=== PATIENT | female | born 2000 | race Two or more races ===

== ENCOUNTER 2023-10-22 03:05 | Outpatient (CLI) | payer OTHER ==
[2023-10-22] MEDS ORDERED: PRENATAL TABLE1 EAC1 PO (03:09)
[2023-10-22] MEDS ORDERED: RINGERS SOLUTION,LACTATED 1,000 ML IV SCH (03:15)
[2023-10-22 03:42] LABS: HEMATOCRIT 30.9 % (36.0-45.00); HEMOGLOBIN 10.6 g/dL (12.0-15.00); MEAN CELL VOLUME 87.7 fL (80.00-100.00); MEAN CORPUSCULAR HEMOGLOBIN 30.1 pg (27.00-32.0); MEAN CORPUSCULAR HGB CONC 34.3 g/dl (32.0-36.0); PLATELET COUNT 263 K/uL (150-450); RED BLOOD COUNT 3.53 M/uL (4.00-6.00); RED CELL DISTRIBUTION WIDTH 13.1 % (11.5-14.5); URINE APPEARANCE Clear; URINE BILIRRUBIN Negative (NEGATIVE); URINE BLOOD Negative; URINE COLOR Dark Yellow; URINE GLUCOSE Negative (NEGATIVE); URINE LEUKOCYTE Negative; URINE NITRATE Negative; URINE PROTEIN Trace (NEGATIVE)
[2023-10-22 03:45] LABS: URINE BACTERIA 605.9 uL (0.0-1933); URINE EPITHELIAL CELLS 8.8 uL (0.0-38.8); URINE RBC 10.2 uL (0.0-20.8); URINE WBC 15.2 uL (0.0-23.2)
[2023-10-22 05:16] LABS: URINE CRYSTALS MANY /HPF
== END 2023-10-22 13:23 | disposition home or self-care (01) ==
LOC: OBS/DEL 03:05
PROVIDERS: Student in an Organized Health Care Education/Training Program; ATTEND Specialist
DX: O99.013 Anemia complicating pregnancy, third trimester (principal); Z3A.28 28 weeks gestation of pregnancy

== ENCOUNTER 2025-04-03 07:35 | Inpatient (IN) | payer OTHER ==
[~2025-04-03] VITALS: Ht 167.6 cm; Wt 76.2 kg
[2025-04-03 07:15] VITALS: BP 128/76
[~2025-04-03 07:35] MED LIST: IRON236 MG PO; PRENATAL TABLE1 EAC1 PO
[2025-04-03] MEDS ORDERED: MORPHINE SULFATE 4 MG/ML CARTRIDGE IV ONE (07:45)
[2025-04-03] MEDS ORDERED: RINGERS SOLUTION,LACTATED 1,000 ML IV SCH (07:45)
[2025-04-03 08:43] LABS: BASO % 0.2 % (0.1-1.2); EOS # 0.03 (0.04-0.54); EOS % 0.2 % (0.7-7.0); LYMPH # 1.77 (1.18-3.74); LYMPH % 13.8 % (19.3-53.1); MEAN PLATELET VOLUME 9.00 fl (9.4-12.4); MONO # 0.88 (0.24-0.82); MONO % 6.9 % (4.7-12.5); NEUT # 10.03 (1.56-6.13); NEUT % 78.6 % (34.0-71.1); RED CELL DISTRIBUTION WIDTH 12.8 % (11.6-14.4); URINE APPEARANCE Clear; URINE BILIRRUBIN Negative (NEGATIVE); URINE BLOOD Large; URINE COLOR Yellow; URINE GLUCOSE Negative (NEGATIVE); URINE KETONE Trace (NEGATIVE); URINE LEUKOCYTE Negative; URINE NITRATE Negative; URINE PROTEIN Negative (NEGATIVE); URINE UROBILINOGEN 1.0 E.U./dl
[2025-04-03 08:48] LABS: URINE BACTERIA 2660.3 uL (0.0-1933); URINE EPITHELIAL CELLS 14.6 uL (0.0-38.8); URINE RBC 2.1 uL (0.0-20.8); URINE WBC 11.8 uL (0.0-23.2)
[2025-04-03 09:19] LABS: ALT/SGPT 15.0 U/L (12-78); AST/SGOT 14.0 U/L (15-37); BILIRUBIN TOTAL 1.04 mg/dL (0.3-1.2); BUN CREA RATIO 23.0 (7.0-25.0); CREATININE SERUM 0.44 mg/dL (0.55-1.02); GFR 177.2; GLOBULINA 3.4 G/DL (2.4-3.5); GLUCOSE FASTING 78.0 mg/dL (65-100); OSMOLALITY SERUM 275.0 MOSM/KG (275-295)
[2025-04-03 09:24] VITALS: BP 113/79
[2025-04-03] MEDS ORDERED: CHLORHEXIDINE GLUCONATE 120 ML BOTTLE TOP ONE (09:30)
[2025-04-03] MEDS ORDERED: ERYTHROMYCIN BASE OPHT 1GM EACH TUBE OP ONE (09:30)
[2025-04-03 09:31] LABS: INR 0.94
[2025-04-03 09:46] VITALS: BP 109/61
[2025-04-03 09:49] LABS: URINE CAST 0.00 uL (0.0-1.40)
[2025-04-03 10:00] VITALS: BP 115/71
[2025-04-03] MEDS ORDERED: OXYTOCIN 20 UNITS/1000ML RL PIGGYBAG IV SCH (10:15)
[2025-04-03] MEDS ORDERED: LIDOCAINE HCL 1% 10ML VIAL IJ ONE (10:15)
[2025-04-03 10:16] VITALS: BP 100/63
[2025-04-03 11:40] VITALS: BP 116/67
[2025-04-04 01:26] VITALS: BP 101/68
[2025-04-04 04:00] VITALS: BP 104/60
[2025-04-04 09:23] VITALS: BP 100/64
[2025-04-04 16:32] VITALS: BP 106/55
[2025-04-05] VITALS: BP 99/72
[2025-04-05 08:48] VITALS: BP 108/68
[2025-04-05 16:47] VITALS: BP 108/69
== END 2025-04-05 18:19 | disposition home or self-care (01) | DRG 807 ==
LOC: OB/GYN 07:35 → LDR 07:35 → OB/GYN 10:17
PROVIDERS: ADMIT Specialist; ATTEND Specialist
PROC: 10E0XZZ Delivery of Products of Conception, External Approach (ICD-10-PCS; principal; 2025-04-03)
PROC: 0HQ9XZZ Repair Perineum Skin, External Approach (ICD-10-PCS; 2025-04-03)
PROC: 4A1HXCZ Monitoring of Products of Conception, Cardiac Rate, External Approach (ICD-10-PCS; 2025-04-03)
DX: O70.0 First degree perineal laceration during delivery (principal); Z37.0 Single live birth; Z3A.38 38 weeks gestation of pregnancy